=== PATIENT | male | born 1955 | race Two or more races ===

== ENCOUNTER 2017-01-06 01:00 | Inpatient (IN) | payer MEDICARE, OTHER ==
[~2017-01-06] VITALS: Ht 175.3 cm; Wt 73.9 kg
[2017-01-06 01:15] VITALS: BP 149/66
[2017-01-06] MEDS ORDERED: DOCUSATE SODIU100 MG ORAL (01:49)
[2017-01-06] MEDS ORDERED: AMLODIPINE BESYL5 MG ORAL (01:49)
[2017-01-06] MEDS ORDERED: METOPROLOL TART25 MG ORAL (01:49)
[2017-01-06] MEDS ORDERED: BENAZEPRIL HCL10 MG ORAL (01:49)
[2017-01-06] MEDS ORDERED: MELATONIN10 M4 PO (01:49)
[2017-01-06] MEDS ORDERED: LIPITOR20 MG ORAL (01:49)
[2017-01-06 04:00] VITALS: BP 133/79
[2017-01-06 08:02] VITALS: BP 137/84
[2017-01-06] MEDS: Docusate 100mg cap ORAL SCH ×2 (08:59→18:39)
[2017-01-06] MEDS: Metoprolol 25mg tab ORAL SCH ×2 (09:00→21:44)
[2017-01-06] MEDS: Benazepril 10mg tab ORAL SCH ×2 (09:00→18:39)
[2017-01-06 11:48] VITALS: BP 110/66
[2017-01-06 12:46] LABS: MAGNESIUM 2.2 mg/dL (1.7-2.5); PHOSPHORUS 3.7 mg/dL (2.5-4.8)
--- NOTE | 2017-01-06 12:46 | Consultation ---
History of Present Illness General Date patient seen: January 06, 2017 Chief Complaint: dizziness Referring physician: Dr. 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 pt was taken to [facility] with CC of dizziness. Apparently pt was saying that he is going to . His speech was more slurred and he was trembling. A CT at [place] didn't show any new CVA. Pt is transferred to [facility] [place] for further evaluation. Allergies: Coded Allergies: PENICILLINS (Verified Allergy, Intermediate, 01/06/17) Medication History Scheduled Amlodipine Besylate* (Amlodipine Besylate*), 5 MG ORAL DAILY, (Reported) Atorvastatin Calcium* (Lipitor*), 20 MG ORAL BEDTIME, (Reported) Benazepril Hcl* (Benazepril Hcl*), 10 MG ORAL BID, (Reported) Docusate Sodium* (Docusate Sodium*), 100 MG ORAL TWICE A DAY, (Reported) Melatonin (Melatonin), 10 MG PO QHS, (Reported) Metoprolol Tartrate* (Metoprolol Tartrate*), 25 MG ORAL EVERY 12 HOURS, ( Reported) Patient History Healthcare decision maker Resuscitation status Full Code Advanced Directive on File No Past Medical/Surgical History Past Medical/Surgical History: (1) Stroke Review of Systems All Other Systems: negative except mentioned in HPI Physical Exam General Appearance: WD/WN Lines, tubes and drains: peripheral, central line Neck: non-tender, normal alignment Respiratory/Chest: chest wall non-tender, lungs clear, rhonchi - left, rhonchi - right Cardiovascular/Chest: normal peripheral pulses, normal rate Abdomen: normal bowel sounds Genitourinary/Rectal: normal genital exam, normal rectal exam Extremities: normal range of motion Last 24 Hour Vital Signs Date Time Temp Pulse Resp B/P Pulse Ox O2 Delivery O2 Flow Rate FiO2 01/06/17 11:48 97.2 71 20 110/66 98 Nasal Cannula 2.0 01/06/17 09:00 137/84 01/06/17 09:00 105 137/84 01/06/17 09:00 105 137/84 01/06/17 08:02 97.6 105 20 137/84 98 Nasal Cannula 2.0 01/06/17 04:00 97.8 106 22 133/79 96 Nasal Cannula 2.0 01/06/17 04:00 103 01/06/17 01:15 97.0 61 20 149/66 96 Room Air Intake and Output 01/05/17 01/06/17 19:00 07:00 Output Total 2200 ml Balance -2200 ml Output Urine Total 2200 ml # Voids 1 Laboratory Tests Test 01/06/17 11:45 Phosphorus Level Pending Magnesium Level Pending Triglycerides Level Pending Cholesterol Level Pending LDL Cholesterol Pending HDL Cholesterol Pending Cholesterol/HDL Ratio Pending Height (Feet): 5 Height (Inches): 9.00 Weight (Pounds): 163 Medications Current Medications Medications (Trade) Dose Ordered Sig/Amandeep Route PRN Reason Start Time Stop Time Status Last Admin Dose Admin Amlodipine Besylate (Norvasc) 5 mg DAILY ORAL 01/06/17 09:00 02/05/17 08:59 01/06/17 09:00 Aspirin (ASA) 325 mg DAILY ORAL 01/06/17 09:00 02/05/17 08:59 01/06/17 09:00 Atorvastatin Calcium (Lipitor) 40 mg BEDTIME ORAL 01/06/17 21:00 02/05/17 20:59 Benazepril HCl (Lotensin) 10 mg BID ORAL 01/06/17 09:00 02/05/17 08:59 01/06/17 09:00 Docusate Sodium (Colace) 100 mg TWICE A DAY ORAL 01/06/17 09:00 02/05/17 08:59 01/06/17 08:59 Heparin Sodium (Porcine) (Heparin 5000 units/ml) 5,000 units EVERY 8 HOURS SUBQ 01/06/17 14:00 02/05/17 13:59 Metoprolol Tartrate (Lopressor) 25 mg Q12HR ORAL 01/06/17 09:00 02/05/17 08:59 01/06/17 09:00 Assessment/Plan Problem List: (1) Dizziness ICD Codes: R42 - Dizziness and giddiness SNOMED: 200498875, 153235466 (2) CVA, old, hemiparesis ICD Codes: I69.359 - Hemiplegia and hemiparesis following cerebral infarction affecting unspecified side SNOMED: 74658800, 81907320, 0516816344702 (3) HTN (hypertension) ICD Codes: I10 - Essential (primary) hypertension SNOMED: 14750990 (4) At high risk for aspiration ICD Codes: Z91.89 - Other specified personal risk factors, not elsewhere classified SNOMED: 588310027 Assessment/Plan swallow study neuro evaluation pt/ot risk stratification for CVA echo dvt prophylaxis aspiration precaution THA GURROLA January 06, 2017 12:46
[2017-01-06 12:55] LABS: BASOPHILS % (AUTO) 0.8 % (0.0-2.0); MEAN CORPUSCULAR HEMOGLOBIN 32.6 PG (27.0-31.0); MEAN CORPUSCULAR HGB CONC 34.1 G/DL (32.0-36.0); MEAN CORPUSCULAR VOLUME 96 FL (80-99); MEAN PLATELET VOLUME 7.6 FL (6.5-10.1); MONOCYTES % (AUTO) 6.9 % (1.0-10.0); NEUTROPHILS % (AUTO) 75.3 % (45.0-75.0); PLATELET COUNT 216 K/UL (150-450); RED BLOOD COUNT 4.77 M/UL (4.70-6.10); RED CELL DISTRIBUTION WIDTH 11.7 % (11.6-14.8); WHITE BLOOD COUNT 7.8 K/UL (4.8-10.8)
[2017-01-06 13:15] LABS: ANION GAP 10 (5-15); CALCIUM 9.3 mg/dL (8.6-10.2); CARBON DIOXIDE 30 mEQ/L (20-30); CHLORIDE 103 mEQ/L (98-107); CREATININE 0.8 mg/dL (0.7-1.2); GLOMERULAR FILTRATION RATE > 60 mL/min (>60); HEMOLYSIS 7; POTASSIUM 4.4 mEQ/L (3.4-4.9); SODIUM 143 mEQ/L (135-145)
--- NOTE | 2017-01-06 14:13 | Diagnostic Imaging Report ---
Indication: COUGH Technique: One view of the chest Comparison: none Findings: There is some atelectasis at the left lung base. Lungs and pleural spaces are otherwise clear. Heart size is normal. Aorta is tortuous. Upper mediastinum is unremarkable.. Impression: Left basilar atelectasis. No acute process otherwise
--- NOTE | 2017-01-06 14:28 | Neurology Progress Note ---
Objective Physical Exam Last Vital Signs Date Time Temp Pulse Resp B/P Pulse Ox O2 Delivery O2 Flow Rate FiO2 01/06/17 11:48 97.2 71 20 110/66 98 Nasal Cannula 2.0 Laboratory Tests Test 01/06/17 11:45 White Blood Count 7.8 K/UL (4.8-10.8) Red Blood Count 4.77 M/UL (4.70-6.10) Hemoglobin 15.6 G/DL (14.2-18.0) Hematocrit 45.8 % (42.0-52.0) Mean Corpuscular Volume 96 FL (80-99) Mean Corpuscular Hemoglobin 32.6 PG (27.0-31.0) H Mean Corpuscular Hemoglobin Concent 34.1 G/DL (32.0-36.0) Red Cell Distribution Width 11.7 % (11.6-14.8) Platelet Count 216 K/UL (150-450) Mean Platelet Volume 7.6 FL (6.5-10.1) Neutrophils (%) (Auto) 75.3 % (45.0-75.0) H Lymphocytes (%) (Auto) 15.0 % (20.0-45.0) L Monocytes (%) (Auto) 6.9 % (1.0-10.0) Eosinophils (%) (Auto) 2.0 % (0.0-3.0) Basophils (%) (Auto) 0.8 % (0.0-2.0) Sodium Level 143 mEQ/L (135-145) Potassium Level 4.4 mEQ/L (3.4-4.9) Chloride Level 103 mEQ/L (98-107) Carbon Dioxide Level 30 mEQ/L (20-30) Anion Gap 10 (5-15) Blood Urea Nitrogen 9 mg/dL (7-23) Creatinine 0.8 mg/dL (0.7-1.2) Estimat Glomerular Filtration Rate > 60 mL/min (>60) Glucose Level 99 mg/dL (74-106) Calcium Level 9.3 mg/dL (8.6-10.2) Phosphorus Level 3.7 mg/dL (2.5-4.8) Magnesium Level 2.2 mg/dL (1.7-2.5) Triglycerides Level 96 mg/dL (< 150) Cholesterol Level 137 mg/dL (< 200) LDL Cholesterol 72 mg/dL (60-99) HDL Cholesterol 46 mg/dL (> 60) Cholesterol/HDL Ratio 3.0 (3.3-4.4) L Impression/Recommendations Recommendations #[id number] YASEMIN ALVAREZ January 06, 2017 14:28
[2017-01-06] MEDS: Heparin 5000 units/ml inj SUBQ SCH ×2 (15:12→21:46)
--- NOTE | 2017-01-06 15:30 | Diagnostic Imaging Report ---
Indication: Left facial droop and pheresis, hemiplegia. History of multiple strokes Technique: sagittal T1 fast spin echo, axial T1 FLAIR, axial T2 FLAIR, axial T2 FS PROPELLER, axial T2* GRE, axial diffusion weighted images. ADC and exponential ADC maps generated Comparison: None Findings: No abnormal areas of restricted diffusion to suggest acute infarction. No acute hemorrhage or edema. Areas of susceptibility artifact are seen in the posterior jesus extending into the midbrain and left cerebral peduncle, within the posterior hypothalamus, and within the bilateral basal ganglia. These areas are mostly low signal on all sequences, with occasional areas of high T2 signal. Similar area is also seen in the high right frontal lobe. These are presumably areas of prior infarct with associated hemorrhage. Small punctate foci of susceptibility artifact, indicating foci of old microhemorrhage are also seen in the parasagittal parietal lobes bilaterally. Small focus of encephalomalacia without associated T2 star abnormality is seen in the right anterior parasagittal frontal lobe. No mass effect nor midline shift. There is mild age-related enlargement of ventricles and extra axial CSF spaces. There are bilateral periventricular deep white matter T2 hyperintensities, most likely areas of chronic ischemic. The vascular flow voids are preserved. Visualized orbits and sinuses are unremarkable. Impression: Negative for acute intracranial bleed, mass effect, or infarct Evidence of multiple old infarcts with associated hemorrhage, as described Chronic and age-related volume loss Periventricular deep white matter T2 hyperintensities, most likely on the basis of chronic ischemic changes. Demyelinating disease also a possibility
[2017-01-06 15:51] VITALS: BP 118/71
--- NOTE | 2017-01-06 18:01 | History & Physical ---
History and Physical History & Physicial Dictated for Int Med-Dr Burgess no. [id number]. WOJCIECH GUERRERO January 06, 2017 18:01
[2017-01-06 20:00] VITALS: BP 120/78
--- NOTE | 2017-01-06 21:17 | History and Physical Report ---
DATE OF ADMISSION: 01/06/2017 CHIEF COMPLAINT: The patient is a 61-year-old male with history of previous cerebrovascular accident, presents with complaint of dizziness and tremors. HISTORY OF PRESENT ILLNESS: Began yesterday afternoon. The patient began to have extreme dizziness. Much of the history and physical was taken with the patient's , who is at the bedside. The patient himself is dysarthric and is unable to contribute much of the history and physical. The patient's son noticed that the patient became more tremulous. The patient also had slurred speech more than usual. The patient was initially taken to [facility] emergency room. Initial MRI failed to demonstrate acute cerebrovascular accident. The patient is transferred to [facility] for insurance purposes. The patient was admitted for dizziness, tremors and dysarthria to rule out acute cerebrovascular accident. PAST MEDICAL HISTORY: Significant for, 1. Hypertension. 2. History of stroke x3 since 2011. 3. Right hemiplegia. 4. Coronary artery disease. 5. Hypercholesterolemia. 6. History of small-bowel obstruction. PAST SURGICAL HISTORY: Significant for, 1. Trach replacement and subsequent reversal. 2. Percutaneous endoscopic gastrostomy placement on 05/2016. CURRENT MEDICATIONS: 1. Amlodipine 5 mg one tablet p.o. daily. 2. Lipitor 20 mg one tablet p.o. q.h.s. 3. Benazepril 10 mg one tablet p.o. twice daily. 4. Colace 100 mg one tablet p.o. twice daily. 5. Melatonin 10 mg one tablet p.o. q.h.s. 6. Metoprolol 25 mg one p.o. twice daily. ALLERGIES: No known drug allergies. SOCIAL HISTORY: The patient is . The patient denies tobacco use having quit 40 years previously. The patient denies alcohol use. REVIEW OF SYSTEMS: Unable to assess, secondary to patient's mental condition. PHYSICAL EXAMINATION: VITAL SIGNS: Temperature 97.6 degrees, respirations 20, pulse 105, blood pressure 137/84, and pulse oximetry 98% on two liters per nasal cannula. GENERAL: The patient is well-developed and well-nourished, male, who appears older than his stated age. HEENT: Eyes, pupils are equal and responsive. Left eye shows a deviation. Otherwise, right eye pupil equal and responsive to light and accommodation. Extraocular movements are intact. NECK: Supple without lymphadenopathy. There is presence of previous tracheostomy noted. CARDIOVASCULAR: Slightly tachycardic. Regular rhythm. S1 and S2 are normal without murmurs, rubs, or gallops. ABDOMEN: Soft, nontender, and nondistended. Positive bowel sounds. No evidence of hepatosplenomegaly. Currently, no rebound or guarding noted. EXTREMITIES: Negative for clubbing, cyanosis, or edema. RECTAL/GENITAL: Refused. NEUROLOGIC: The patient does have 2/5 motor strength on the right and 3/5 on the left. Deep tendon reflexes are 2+ plantar. LABORATORY STUDIES: An MRI revealed no acute infarct. WBC 5.4, hemoglobin 14.4, and hematocrit 41.4. Urine is 84,000. Sodium 140, potassium 4.3, chloride 103, CO2 30, BUN 9, creatinine 0.9, and glucose 121. ProTime INR is 1.0. Urinalysis was within normal limits. ASSESSMENT: This is a 61-year-old male. 1. Vertigo. 2. Tremor. 3. Dysarthria. 4. History of cerebrovascular disease. 5. History of coronary artery disease. 6. Hypertension. 7. Hypercholesterolemia. 8. Right hemiplegia. TREATMENT: 1. Vertigo/tumor/dysarthria. A Neurology consultation was obtained with Dr. Arreaga. Carotid duplex and Dopplers are pending. An echocardiogram is pending. A repeat MRI is pending. We will follow recommendations of Neurology. This may be a transient ischemic attack versus new cerebrovascular accident. We will follow recommendations of Neurology. 2. Coronary artery disease. The patient is status post myocardial infarction in 2011. A Cardiology consultation was obtained with Dr. Praveen Min. We will follow recommendations of Dr. Min. 3. Hypertension. Continue amlodipine and benazepril as above. Continue metoprolol as above. 4. Hypercholesterolemia. Continue atorvastatin as above. 5. Right hemiplegia. Jw Lugo M.D. DR: IGNACIA JOB#: [id number] CC:
--- NOTE | 2017-01-06 21:32 | Consultation ---
DATE OF CONSULTATION: 01/06/2017 CONSULTING PHYSICIAN: Adrian Arreaga M.D. REFERRING PHYSICIAN: Romaine Burgess M.D. HISTORY OF PRESENT ILLNESS: The patient is a 61-year-old male with multiple strokes in the past now admitted after having few days of acute positional vertigo, headache, generalized arms and legs tremors. His described the patient had episodes of spinning sensation which were progressed with any head movement, the patient apparently had a similar episode a year ago at which point no stroke was diagnosed. The patient was initially brought to [facility] Emergency Room, had a CAT scan of the brain which revealed old right frontal lobe infarct, ischemic white matter changes but no evidence of acute abnormalities. The patient was brought to this hospital for further assessment and treatment. Initial laboratory studies included normal CBC. Chemistry panel unremarkable. Unremarkable lipid panel. Vital signs remained stable except sinus tachycardia. PAST MEDICAL HISTORY: The patient had at least three episodes of strokes including pontine stroke. He remained with significant neurological deficit which make him wheelchair bound as he unable to ambulate, and unable to provide himself with all activities through the day living. He has a history of hypertension, history of coronary artery disease, hyperlipidemia, history of small bowel obstruction. SOCIAL HISTORY: The patient lives with his . No alcohol. No drug abuse. Nonsmoker. FAMILY HISTORY: Noncontributory. REVIEW OF SYSTEMS: The patient indicates that he still have some dizziness although subsided significantly. Otherwise the patient indicating he is at baseline. PHYSICAL EXAMINATION: GENERAL: Well-developed and well-nourished man not in acute distress, lying comfortably in bed. His at the bedside. VITAL SIGNS: Blood pressure 133/80, respirations 14. HEENT: Head, normocephalic. No evidence of injuries. Eyes, ears, and throat are clear. NECK: Rigid in all directions. MUSCULOSKELETAL: Unremarkable. There is no deformities. Peripheral pulses 1+ symmetric. MENTAL STATUS: The patient is alert. Speech is very dysarthric. Very hard to understand. He is coherent. Follow commands. CRANIAL NERVE II: Pupils both responding to light and accommodation. There is a right gaze preference. Inward deviation of left eye with no lateral gaze movement. CRANIAL NERVE V: Normal corneal responses. CRANIAL NERVE VII: Droop left nasolabial fold . CRANIAL NERVE VIII: Normal hearing. CRANIAL NERVE IX THROUGH XII: Dysphagia, slight tongue deviation to the right. Reduced gag response. There is some dysphonia. MOTOR EXAMINATION: Slight spasticity in both upper and lower extremities more on the right side with strength 5/5 on the left side, 4/5 on the right side with significant hemiataxia. Deep tendon reflexes 3+ on the right. Positive Babinski in the right. SENSORY: Significant pinprick sensation loss on the right side of the body. Gait unable to test. The patient required full assist. IMPRESSION: 1. This is a 61-year-old male with multiple stroke risk factors and multiple strokes in the past now presenting with transient episode of positional vertigo with no evidence of new neurological deficit rule out benign positional vertigo versus stroke in posterior vertebrobasilar system. 2. Hypertension. 3. Hyperlipidemia. 4. Coronary artery disease. RECOMMENDATIONS: 1. MRI of the brain without contrast. 2. Carotid duplex study. 3. Continue with antiplatelets, statin while maintaining blood pressure control. 4. Meclizine 12.5 mg t.i.d. p.r.n. vertigo. Thank you for allowing me to see this interesting patient in neurological consultation. Adrian Arreaga M.D. DR: Ameya JOB#: [id number] CC:
[2017-01-07] VITALS: BP 105/65
[2017-01-07 04:13] VITALS: BP 105/65
[2017-01-07] MEDS: Heparin 5000 units/ml inj SUBQ SCH ×3 (05:59→21:13)
[2017-01-07 08:14] VITALS: BP 112/70
[2017-01-07 08:17] LABS: BASOPHILS % (AUTO) 1.1 % (0.0-2.0); EOSINOPHILS % (AUTO) 4.9 % (0.0-3.0); LYMPHOCYTES % (AUTO) 28.5 % (20.0-45.0); MEAN CORPUSCULAR HEMOGLOBIN 32.8 PG (27.0-31.0); MEAN CORPUSCULAR HGB CONC 34.2 G/DL (32.0-36.0); MEAN CORPUSCULAR VOLUME 96 FL (80-99); MEAN PLATELET VOLUME 8.7 FL (6.5-10.1); MONOCYTES % (AUTO) 8.7 % (1.0-10.0); NEUTROPHILS % (AUTO) 56.7 % (45.0-75.0); PLATELET COUNT 191 K/UL (150-450); RED BLOOD COUNT 4.49 M/UL (4.70-6.10); RED CELL DISTRIBUTION WIDTH 11.9 % (11.6-14.8); WHITE BLOOD COUNT 5.5 K/UL (4.8-10.8)
[2017-01-07 08:31] LABS: ANION GAP 9 (5-15); CALCIUM 9.1 mg/dL (8.6-10.2); CARBON DIOXIDE 31 mEQ/L (20-30); CHLORIDE 102 mEQ/L (98-107); CREATININE 0.7 mg/dL (0.7-1.2); GLOMERULAR FILTRATION RATE > 60 mL/min (>60); HEMOLYSIS 5; POTASSIUM 3.9 mEQ/L (3.4-4.9); SODIUM 142 mEQ/L (135-145)
[2017-01-07] MEDS: Benazepril 10mg tab ORAL SCH ×2 (09:44→17:52)
[2017-01-07] MEDS: Docusate 100mg cap ORAL SCH (09:44)
[2017-01-07] MEDS: Metoprolol 25mg tab ORAL SCH ×2 (09:45→21:11)
--- NOTE | 2017-01-07 11:40 | Internal Med Progress Note ---
Subjective Date of Service: January 07, 2017 Physician Name Jw Guerrero Attending Physician Romaine Burgess MD Current Medications Medications (Trade) Dose Ordered Sig/Amandeep Route PRN Reason Start Time Stop Time Status Last Admin Dose Admin Amlodipine Besylate (Norvasc) 5 mg DAILY ORAL 01/06/17 09:00 02/05/17 08:59 01/07/17 09:45 Aspirin (ASA) 325 mg DAILY ORAL 01/06/17 09:00 02/05/17 08:59 01/07/17 09:44 Atorvastatin Calcium (Lipitor) 40 mg BEDTIME ORAL 01/06/17 21:00 02/05/17 20:59 01/06/17 21:44 Benazepril HCl (Lotensin) 10 mg BID ORAL 01/06/17 09:00 02/05/17 08:59 01/07/17 09:44 Docusate Sodium (Colace) 100 mg TWICE A DAY ORAL 01/06/17 09:00 02/05/17 08:59 01/07/17 09:44 Heparin Sodium (Porcine) (Heparin 5000 units/ml) 5,000 units EVERY 8 HOURS SUBQ 01/06/17 14:00 02/05/17 13:59 01/07/17 05:59 Metoprolol Tartrate (Lopressor) 25 mg Q12HR ORAL 01/06/17 09:00 02/05/17 08:59 01/07/17 09:45 Allergies: Coded Allergies: PENICILLINS (Verified Allergy, Intermediate, 01/06/17) ROS Limited/Unobtainable: Yes Subjective 61 YO M admitted with vertigo and possible cerebral vascular accident. Cover for Int Med-Dr Burgess. Objective Last Vital Signs Date Time Temp Pulse Resp B/P Pulse Ox O2 Delivery O2 Flow Rate FiO2 01/07/17 09:45 73 114/74 01/07/17 08:14 97.9 18 98 Nasal Cannula 2.0 01/07/17 04:30 30 Laboratory Tests Test 01/06/17 11:45 01/07/17 07:25 White Blood Count 7.8 K/UL (4.8-10.8) 5.5 K/UL (4.8-10.8) Red Blood Count 4.77 M/UL (4.70-6.10) 4.49 M/UL (4.70-6.10) L Hemoglobin 15.6 G/DL (14.2-18.0) 14.7 G/DL (14.2-18.0) Hematocrit 45.8 % (42.0-52.0) 43.1 % (42.0-52.0) Mean Corpuscular Volume 96 FL (80-99) 96 FL (80-99) Mean Corpuscular Hemoglobin 32.6 PG (27.0-31.0) H 32.8 PG (27.0-31.0) H Mean Corpuscular Hemoglobin Concent 34.1 G/DL (32.0-36.0) 34.2 G/DL (32.0-36.0) Red Cell Distribution Width 11.7 % (11.6-14.8) 11.9 % (11.6-14.8) Platelet Count 216 K/UL (150-450) 191 K/UL (150-450) Mean Platelet Volume 7.6 FL (6.5-10.1) 8.7 FL (6.5-10.1) Neutrophils (%) (Auto) 75.3 % (45.0-75.0) H 56.7 % (45.0-75.0) Lymphocytes (%) (Auto) 15.0 % (20.0-45.0) L 28.5 % (20.0-45.0) Monocytes (%) (Auto) 6.9 % (1.0-10.0) 8.7 % (1.0-10.0) Eosinophils (%) (Auto) 2.0 % (0.0-3.0) 4.9 % (0.0-3.0) H Basophils (%) (Auto) 0.8 % (0.0-2.0) 1.1 % (0.0-2.0) Sodium Level 143 mEQ/L (135-145) 142 mEQ/L (135-145) Potassium Level 4.4 mEQ/L (3.4-4.9) 3.9 mEQ/L (3.4-4.9) Chloride Level 103 mEQ/L (98-107) 102 mEQ/L (98-107) Carbon Dioxide Level 30 mEQ/L (20-30) 31 mEQ/L (20-30) H Anion Gap 10 (5-15) 9 (5-15) Blood Urea Nitrogen 9 mg/dL (7-23) 14 mg/dL (7-23) Creatinine 0.8 mg/dL (0.7-1.2) 0.7 mg/dL (0.7-1.2) Estimat Glomerular Filtration Rate > 60 mL/min (>60) > 60 mL/min (>60) Glucose Level 99 mg/dL (74-106) 82 mg/dL (74-106) Calcium Level 9.3 mg/dL (8.6-10.2) 9.1 mg/dL (8.6-10.2) Phosphorus Level 3.7 mg/dL (2.5-4.8) Magnesium Level 2.2 mg/dL (1.7-2.5) Triglycerides Level 96 mg/dL (< 150) Cholesterol Level 137 mg/dL (< 200) LDL Cholesterol 72 mg/dL (60-99) HDL Cholesterol 46 mg/dL (> 60) Cholesterol/HDL Ratio 3.0 (3.3-4.4) L Intake and Output 01/06/17 01/07/17 19:00 07:00 Intake Total 600 ml Output Total 600 ml 600 ml Balance 0 ml -600 ml Intake Oral 600 ml Output Urine Total 600 ml 600 ml Objective General: alert, cooperative, no distress, appears stated age Head: normocephalic, without obvious abnormality, atraumatic Eyes: conjunctivae/corneas clear. PERRL, EOM's intact Throat: lips, mucosa, and tongue normal. MMM Neck: supple, symmetrical, trachea midline, and no JVD Lungs: clear to auscultation bilaterally Heart: regular rate and rhythm, S1, S2 normal, no murmur, click, rub or gallop Abdomen: soft, non-tender, non-distended, bowel sounds normal; no masses or organomegaly Extremities: extremities normal, atraumatic, no cyanosis or edema Pulses: 2+ and symmetric Skin: skin color, texture, turgor normal; no rashes or lesions Neurologic: right hemiplegia. Assessment/Plan Problem List: (1) Vertigo as late effect of stroke Assessment & Plan: MRI=no acute CVA. ?TIA vs vertebral artery occlusion? See neuro workup in progress. (2) Tremor (3) Dysarthria as late effect of stroke (4) Cerebral vascular disease (5) Coronary artery disease (6) HTN (hypertension) Assessment & Plan: Continue norvasc, lopressor and lotensin (7) Hypercholesteremia Assessment & Plan: Continue lipitor (8) Hemiplegia affecting right dominant side Status: not improved JW GUERRERO January 07, 2017 11:40
[2017-01-07 11:47] VITALS: BP 110/62
--- NOTE | 2017-01-07 12:57 | Neurology Progress Note ---
Interim History Interim History ROS Limited/Unobtainable: Yes Complaints: feel better Events: no vertigo Objective Physical Exam Last Vital Signs Date Time Temp Pulse Resp B/P Pulse Ox O2 Delivery O2 Flow Rate FiO2 01/07/17 11:47 97.2 72 17 110/62 98 Room Air 01/07/17 08:14 2.0 01/07/17 04:30 30 Laboratory Tests Test 01/07/17 07:25 White Blood Count 5.5 K/UL (4.8-10.8) Red Blood Count 4.49 M/UL (4.70-6.10) L Hemoglobin 14.7 G/DL (14.2-18.0) Hematocrit 43.1 % (42.0-52.0) Mean Corpuscular Volume 96 FL (80-99) Mean Corpuscular Hemoglobin 32.8 PG (27.0-31.0) H Mean Corpuscular Hemoglobin Concent 34.2 G/DL (32.0-36.0) Red Cell Distribution Width 11.9 % (11.6-14.8) Platelet Count 191 K/UL (150-450) Mean Platelet Volume 8.7 FL (6.5-10.1) Neutrophils (%) (Auto) 56.7 % (45.0-75.0) Lymphocytes (%) (Auto) 28.5 % (20.0-45.0) Monocytes (%) (Auto) 8.7 % (1.0-10.0) Eosinophils (%) (Auto) 4.9 % (0.0-3.0) H Basophils (%) (Auto) 1.1 % (0.0-2.0) Sodium Level 142 mEQ/L (135-145) Potassium Level 3.9 mEQ/L (3.4-4.9) Chloride Level 102 mEQ/L (98-107) Carbon Dioxide Level 31 mEQ/L (20-30) H Anion Gap 9 (5-15) Blood Urea Nitrogen 14 mg/dL (7-23) Creatinine 0.7 mg/dL (0.7-1.2) Estimat Glomerular Filtration Rate > 60 mL/min (>60) Glucose Level 82 mg/dL (74-106) Calcium Level 9.1 mg/dL (8.6-10.2) General: well developed, well nourished, no acute distress Head: normocophalic Neck: no rigidity Neurologic Exam Mental Status: awake, alert, other - ox2 Speech: other - dysarthria Language: other Cranial Nerve II: fundus normal, visual martinez Cranial Nerves III, IV, : other - L EYE DEVIATION TO r Cranial Nerve V: normal facial sensations Cranial Nerve VII: normal facial expressions Cranial Nerve VIII: no nystagmus Cranial Nerve IX: other - POOR GAG Cranial Nerve XI: trapezii function normal Cranial Nerve XII: no tongue atrophy/fasciculations Motor System: other - RIGIDITY r HEMIPARESIS Sensory: other - HEMISENSORY LOSS Coordination: other - ATAXIA r SIDE Deep Tendon Reflexes: 0 ankle (L), 0 ankle (R), 0 bicep (L), 0 bicep (R), 0 brachioradialis (L), 0 brachioradialis (R), 0 knee (L), 0 knee (R), 0 tricep (L) , 0 tricep (R) Reflexes: extensor plantar (R) Impression/Recommendations Problems: (1) Vertigo as late effect of stroke (2) Dysarthria as late effect of stroke (3) HTN (hypertension) (4) Hypercholesteremia (5) Coronary artery disease Status: doing well Recommendations #[id number] mri BRAI N NO ACUTE STROKE CONT PRESENT RX YASEMIN ALVAREZ January 07, 2017 12:57
[2017-01-07 16:00] VITALS: BP 123/67
--- NOTE | 2017-01-07 16:45 | Diagnostic Imaging Report ---
Indication: Dysphasia Procedure and findings: Real-time fluoroscopic imaging performed in a lateral projection in conjunction with the speech pathologist evaluation. Variable consistencies of barium given per mouth. Findings: Significant abnormalities of both oral and pharyngeal phases of swallowing are demonstrated. Penetration noted with thin barium. No aspiration identified. Abnormal video swallow. Please refer to speech pathology evaluation for more information.
--- NOTE | 2017-01-07 17:38 | Pulmonology Progress Note ---
Assessment/Plan Problems: (1) Dizziness (2) CVA, old, hemiparesis (3) HTN (hypertension) (4) At high risk for aspiration Assessment/Plan MRI negative for new events swallow study noted pt/ot might go to med/surg Subjective ROS Limited/Unobtainable: Yes Allergies: Coded Allergies: PENICILLINS (Verified Allergy, Intermediate, 01/06/17) Objective Last 24 Hour Vital Signs Date Time Temp Pulse Resp B/P Pulse Ox O2 Delivery O2 Flow Rate FiO2 01/07/17 16:00 96.9 61 17 123/67 99 Room Air 01/07/17 11:47 97.2 72 17 110/62 98 Room Air 01/07/17 09:45 73 114/74 01/07/17 09:45 73 114/74 01/07/17 09:44 114/70 01/07/17 08:14 97.9 63 18 112/70 98 Nasal Cannula 2.0 01/07/17 04:30 75 18 99 Facial 30 01/07/17 04:13 98.0 65 16 105/65 98 2.0 30 01/07/17 04:00 66 01/07/17 01:30 80 16 98 Facial 30 01/07/17 00:00 56 01/07/17 00:00 98.0 59 19 105/65 99 Nasal Cannula 2.0 30 01/06/17 22:30 82 19 99 Facial 30 01/06/17 21:44 73 120/78 01/06/17 20:00 98.0 73 20 120/78 98 Nasal Cannula 2.0 01/06/17 20:00 82 01/06/17 18:39 118/71 Intake and Output 01/06/17 01/07/17 19:00 07:00 Intake Total 600 ml Output Total 600 ml 600 ml Balance 0 ml -600 ml Intake Oral 600 ml Output Urine Total 600 ml 600 ml General Appearance: WD/WN HEENT: normocephalic Respiratory/Chest: chest wall non-tender, lungs clear Cardiovascular: normal peripheral pulses, normal rate Abdomen: normal bowel sounds, soft, non tender Genitourinary: normal external genitalia Extremities: no cyanosis, no clubbing Skin: no rash, no lesions Laboratory Tests 01/07/17 07:25: White Blood Count 5.5, Red Blood Count 4.49L, Hemoglobin 14.7, Hematocrit 43.1, Mean Corpuscular Volume 96, Mean Corpuscular Hemoglobin 32.8H, Mean Corpuscular Hemoglobin Concent 34.2, Red Cell Distribution Width 11.9, Platelet Count 191, Mean Platelet Volume 8.7, Neutrophils (%) (Auto) 56.7, Lymphocytes (%) (Auto) 28.5, Monocytes (%) (Auto) 8.7, Eosinophils (%) (Auto) 4.9H, Basophils (%) (Auto ) 1.1, Sodium Level 142, Potassium Level 3.9, Chloride Level 102, Carbon Dioxide Level 31H, Anion Gap 9, Blood Urea Nitrogen 14, Creatinine 0.7, Estimat Glomerular Filtration Rate > 60, Glucose Level 82, Calcium Level 9.1 Current Medications Medications (Trade) Dose Ordered Sig/Amandeep Route PRN Reason Start Time Stop Time Status Last Admin Dose Admin Amlodipine Besylate (Norvasc) 5 mg DAILY ORAL 01/06/17 09:00 02/05/17 08:59 01/07/17 09:45 Aspirin (ASA) 325 mg DAILY ORAL 01/06/17 09:00 02/05/17 08:59 01/07/17 09:44 Atorvastatin Calcium (Lipitor) 40 mg BEDTIME ORAL 01/06/17 21:00 02/05/17 20:59 01/06/17 21:44 Benazepril HCl (Lotensin) 10 mg BID ORAL 01/06/17 09:00 02/05/17 08:59 01/07/17 09:44 Docusate Sodium (Colace) 100 mg TWICE A DAY ORAL 01/06/17 09:00 02/05/17 08:59 01/07/17 09:44 Heparin Sodium (Porcine) (Heparin 5000 units/ml) 5,000 units EVERY 8 HOURS SUBQ 01/06/17 14:00 02/05/17 13:59 01/07/17 15:29 Metoprolol Tartrate (Lopressor) 25 mg Q12HR ORAL 01/06/17 09:00 02/05/17 08:59 01/07/17 09:45 THA GURROLA January 07, 2017 17:38
[2017-01-07 20:00] VITALS: BP 117/68
[2017-01-08] VITALS: BP 102/60
[2017-01-08 04:00] VITALS: BP 132/66
[2017-01-08] MEDS: Heparin 5000 units/ml inj SUBQ SCH ×3 (06:33→22:37)
[2017-01-08 07:39] LABS: BASOPHILS % (AUTO) 0.9 % (0.0-2.0); EOSINOPHILS % (AUTO) 5.3 % (0.0-3.0); LYMPHOCYTES % (AUTO) 27.6 % (20.0-45.0); MEAN CORPUSCULAR HEMOGLOBIN 32.7 PG (27.0-31.0); MEAN CORPUSCULAR HGB CONC 34.3 G/DL (32.0-36.0); MEAN CORPUSCULAR VOLUME 95 FL (80-99); MEAN PLATELET VOLUME 8.1 FL (6.5-10.1); MONOCYTES % (AUTO) 9.4 % (1.0-10.0); NEUTROPHILS % (AUTO) 56.8 % (45.0-75.0); PLATELET COUNT 174 K/UL (150-450); RED BLOOD COUNT 4.38 M/UL (4.70-6.10); RED CELL DISTRIBUTION WIDTH 11.4 % (11.6-14.8); WHITE BLOOD COUNT 5.9 K/UL (4.8-10.8)
[2017-01-08 08:00] VITALS: BP 117/65
[2017-01-08 08:03] LABS: ANION GAP 9 (5-15); CARBON DIOXIDE 33 mEQ/L (20-30); CHLORIDE 101 mEQ/L (98-107); CREATININE 0.7 mg/dL (0.7-1.2); GLOMERULAR FILTRATION RATE > 60 mL/min (>60); HEMOLYSIS 6; POTASSIUM 4.1 mEQ/L (3.4-4.9); SODIUM 143 mEQ/L (135-145)
[2017-01-08] MEDS: Metoprolol 25mg tab ORAL SCH ×2 (10:08→21:01)
[2017-01-08] MEDS: Benazepril 10mg tab ORAL SCH ×2 (10:08→21:01)
--- NOTE | 2017-01-08 11:31 | Wound Care Consultation ---
Wound Assessment Wound Assessment : Wound Present on Admission: Yes New Wound: No Status Change of Wound: No Wound Location Body Site Modif: mid Wound Location Body Site: nose - bridge of nose Wound Type: pressure ulcer Diego Test: Does not Diego Pressure Ulcer Stage: II Wound Thickness: Full Thickness Wound Length: 2.0 Wound Width: 1.0 Wound Depth: 0.1 Percent of Wound Seth Ward/Red: 100 Wound Drainage Description: Serosanguineous Wound Drainage Amount: Scant Wound Drainage Odor: None/Absent Tissue Surrounding Wound: Intact Wound General Appearance: Reddened Wound Comment #1 Bridge of the nose stage II pressure ulcer Recommendation -Cleanse with saline pat dry apply Triad cover with 4x4 secure with paper tape -Keep clean and dry -Optimize nutrition -Assess and f/u accordingly for any changes RYAN KEYES RN January 08, 2017 11:31
[2017-01-08 12:00] VITALS: BP 116/66
[2017-01-08] MEDS ORDERED: Meclizine 25mg tab ORAL PRN ×2 (13:00→17:00)
--- NOTE | 2017-01-08 13:01 | Pulmonology Progress Note ---
Assessment/Plan Problems: (1) Dizziness (2) CVA, old, hemiparesis (3) HTN (hypertension) (4) At high risk for aspiration Assessment/Plan MRI negative for new events swallow study noted pt/ot might go to med/surg GI to remove gube start antivert Subjective ROS Limited/Unobtainable: No Constitutional: Reports: no symptoms HEENT: Repors: no symptoms Allergies: Coded Allergies: PENICILLINS (Verified Allergy, Intermediate, 01/06/17) Objective Last 24 Hour Vital Signs Date Time Temp Pulse Resp B/P Pulse Ox O2 Delivery O2 Flow Rate FiO2 01/08/17 12:00 97.4 50 18 116/66 Nasal Cannula 2.0 99 01/08/17 10:08 142/76 01/08/17 10:08 77 142/76 01/08/17 10:08 77 142/76 01/08/17 08:00 97.4 64 18 117/65 99 Room Air 01/08/17 05:20 65 18 98 Facial 30 01/08/17 04:00 70 01/08/17 04:00 97.9 65 20 132/66 96 Bi-pap 01/08/17 03:45 62 19 98 Facial 30 01/08/17 01:25 60 21 98 Facial 30 01/08/17 00:00 56 01/08/17 00:00 97.6 62 20 102/60 98 Bi-pap 01/07/17 23:29 64 23 98 Facial 30 01/07/17 21:53 61 18 98 Facial 30 01/07/17 21:11 77 117/68 01/07/17 20:00 78 01/07/17 20:00 98.2 77 21 117/68 94 Room Air 01/07/17 17:52 123/67 01/07/17 16:00 66 01/07/17 16:00 96.9 61 17 123/67 99 Room Air Intake and Output 01/07/17 01/08/17 19:00 07:00 Intake Total 530 ml Output Total 900 ml Balance 530 ml -900 ml Intake Oral 530 ml Output Urine Total 900 ml General Appearance: cachetic HEENT: atraumatic Respiratory/Chest: chest wall non-tender, lungs clear Cardiovascular: normal peripheral pulses, normal rate Abdomen: normal bowel sounds, soft, non tender Extremities: no cyanosis, no clubbing Neurologic/Psychiatric: responsive Musculoskeletal: normal muscle bulk Microbiology Date/Time Source Procedure Growth Status 01/06/17 02:10 Nasal Nares Left MRSA Culture - Final NO METHICILLIN RESISTANT STAPH AUREUS... Complete 01/06/17 02:10 Rectum VRE Culture - Final NO VANCOMYCIN RESISTANT ENTEROCOCCUS ... Complete Laboratory Tests 01/08/17 06:30: White Blood Count 5.9, Red Blood Count 4.38L, Hemoglobin 14.3, Hematocrit 41.7L , Mean Corpuscular Volume 95, Mean Corpuscular Hemoglobin 32.7H, Mean Corpuscular Hemoglobin Concent 34.3, Red Cell Distribution Width 11.4L, Platelet Count 174, Mean Platelet Volume 8.1, Neutrophils (%) (Auto) 56.8, Lymphocytes (%) (Auto) 27.6, Monocytes (%) (Auto) 9.4, Eosinophils (%) (Auto) 5.3H, Basophils (%) (Auto) 0.9, Sodium Level 143, Potassium Level 4.1, Chloride Level 101, Carbon Dioxide Level 33H, Anion Gap 9, Blood Urea Nitrogen 15, Creatinine 0.7, Estimat Glomerular Filtration Rate > 60, Glucose Level 86, Calcium Level 9.0 Current Medications Medications (Trade) Dose Ordered Sig/Amandeep Route PRN Reason Start Time Stop Time Status Last Admin Dose Admin Amlodipine Besylate (Norvasc) 5 mg DAILY ORAL 01/06/17 09:00 02/05/17 08:59 01/08/17 10:08 Aspirin (ASA) 325 mg DAILY ORAL 01/06/17 09:00 02/05/17 08:59 01/08/17 10:07 Atorvastatin Calcium (Lipitor) 40 mg BEDTIME ORAL 01/06/17 21:00 02/05/17 20:59 01/07/17 21:11 Benazepril HCl (Lotensin) 10 mg BID ORAL 01/06/17 09:00 02/05/17 08:59 01/08/17 10:08 Docusate Sodium (Colace) 100 mg BID ORAL 01/08/17 18:30 02/07/17 18:29 Heparin Sodium (Porcine) (Heparin 5000 units/ml) 5,000 units EVERY 8 HOURS SUBQ 01/06/17 14:00 02/05/17 13:59 01/08/17 10:09 Metoprolol Tartrate (Lopressor) 25 mg Q12HR ORAL 01/06/17 09:00 02/05/17 08:59 01/08/17 10:08 THA GURROLA January 08, 2017 13:01
--- NOTE | 2017-01-08 14:51 | GI Initial Consult Note ---
History of Present Illness General Date patient seen: January 08, 2017 Time patient seen: 13:00 Reason for Hospitalization: ASPIRATION Referring physician: Dr. Lugo Reason for Consultation: GT REMOVAL Present Illness HPI Began yesterday afternoon. The patient began to have extreme dizziness. Much of the history and physical was taken with the patient's , who is at the bedside. The patient himself is dysarthric and is unable to contribute much of the history and physical. The patient's son noticed that the patient became more tremulous. The patient also had slurred speech more than usual. The patient was initially taken to [facility] emergency room. Initial MRI failed to demonstrate acute cerebrovascular accident. The patient is transferred to [facility] for insurance purposes. The patient was admitted for dizziness, tremors and dysarthria to rule out acute cerebrovascular accident. GI CONSULT: HPI as noted above. GI consulted for GT removal. SADAF limited, family member at bedside. Pt seen on floor awake alert NAD being fed by family member. No active s/sx of aspiration. According to the family member, the patient has been eating since June and has had no reports of aspiration. Home Meds Reported Medications Melatonin (Melatonin) 10 Mg Tablet.er, 10 MG PO QHS, TAB 01/06/17 Benazepril Hcl* (BENAZEPRIL HCL*) 10 Mg Tablet, 10 MG ORAL BID, TAB 01/06/17 Atorvastatin Calcium* (LIPITOR*) 20 Mg Tablet, 20 MG ORAL BEDTIME, TAB 01/06/17 Amlodipine Besylate* (AMLODIPINE BESYLATE*) 5 Mg Tablet, 5 MG ORAL DAILY, TAB 01/06/17 Metoprolol Tartrate* (METOPROLOL TARTRATE*) 25 Mg Tablet, 25 MG ORAL EVERY 12 HOURS, TAB 01/06/17 Docusate Sodium* (DOCUSATE SODIUM*) 100 Mg Capsule, 100 MG ORAL TWICE A DAY, CAP 01/06/17 Med list reviewed/reconciled: Yes Allergies: Coded Allergies: PENICILLINS (Verified Allergy, Intermediate, 01/06/17) Patient History Limited by: medical condition History Provided By: Medical Record [facility] Narrative PAST MEDICAL HISTORY: Significant for, 1. Hypertension. 2. History of stroke x3 since 2011. 3. Right hemiplegia. 4. Coronary artery disease. 5. Hypercholesterolemia. 6. History of small-bowel obstruction. PAST SURGICAL HISTORY: Significant for, 1. Trach replacement and subsequent reversal. 2. Percutaneous endoscopic gastrostomy placement on 05/2016. Social History: Denies: alcohol use, drug use, other, smoking Review of Systems All Other Systems: limited Physical Exam Vital Signs Date Time Temp Pulse Resp B/P Pulse Ox O2 Delivery O2 Flow Rate FiO2 01/06/17 01:15 97.0 61 20 149/66 96 Room Air 01/06/17 04:00 2.0 01/06/17 22:30 30 Sp02 EP Interpretation: reviewed Labs Laboratory Tests Test 01/08/17 06:30 White Blood Count 5.9 K/UL (4.8-10.8) Red Blood Count 4.38 M/UL (4.70-6.10) L Hemoglobin 14.3 G/DL (14.2-18.0) Hematocrit 41.7 % (42.0-52.0) L Mean Corpuscular Volume 95 FL (80-99) Mean Corpuscular Hemoglobin 32.7 PG (27.0-31.0) H Mean Corpuscular Hemoglobin Concent 34.3 G/DL (32.0-36.0) Red Cell Distribution Width 11.4 % (11.6-14.8) L Platelet Count 174 K/UL (150-450) Mean Platelet Volume 8.1 FL (6.5-10.1) Neutrophils (%) (Auto) 56.8 % (45.0-75.0) Lymphocytes (%) (Auto) 27.6 % (20.0-45.0) Monocytes (%) (Auto) 9.4 % (1.0-10.0) Eosinophils (%) (Auto) 5.3 % (0.0-3.0) H Basophils (%) (Auto) 0.9 % (0.0-2.0) Sodium Level 143 mEQ/L (135-145) Potassium Level 4.1 mEQ/L (3.4-4.9) Chloride Level 101 mEQ/L (98-107) Carbon Dioxide Level 33 mEQ/L (20-30) H Anion Gap 9 (5-15) Blood Urea Nitrogen 15 mg/dL (7-23) Creatinine 0.7 mg/dL (0.7-1.2) Estimat Glomerular Filtration Rate > 60 mL/min (>60) Glucose Level 86 mg/dL (74-106) Calcium Level 9.0 mg/dL (8.6-10.2) General Appearance: no apparent distress, alert Head: normocephalic EENT: normal ENT inspection Neck: supple Respiratory: no respiratory distress Cardiovascular: normal rate Gastrointestinal: gt - c/d/i Rectal: deferred Neurologic: alert Skin: normal inspection, normal color, no rash, warm/dry Lymphatic: normal inspection, no adenopathy Current Medications Current Medications Medications (Trade) Dose Ordered Sig/Amandeep Route PRN Reason Start Time Stop Time Status Last Admin Dose Admin Amlodipine Besylate (Norvasc) 5 mg DAILY ORAL 01/06/17 09:00 02/05/17 08:59 01/08/17 10:08 Aspirin (ASA) 325 mg DAILY ORAL 01/06/17 09:00 02/05/17 08:59 01/08/17 10:07 Atorvastatin Calcium (Lipitor) 40 mg BEDTIME ORAL 01/06/17 21:00 02/05/17 20:59 01/07/17 21:11 Benazepril HCl (Lotensin) 10 mg BID ORAL 01/06/17 09:00 02/05/17 08:59 01/08/17 10:08 Docusate Sodium (Colace) 100 mg BID ORAL 01/08/17 18:30 02/07/17 18:29 Heparin Sodium (Porcine) (Heparin 5000 units/ml) 5,000 units EVERY 8 HOURS SUBQ 01/06/17 14:00 02/05/17 13:59 01/08/17 10:09 Meclizine HCl (Antivert) 25 mg Q6H PRN ORAL for dizziness 01/08/17 13:00 02/07/17 12:59 Metoprolol Tartrate (Lopressor) 25 mg Q12HR ORAL 01/06/17 09:00 02/05/17 08:59 01/08/17 10:08 GI: Plan Problems: (1) PEG (percutaneous endoscopic gastrostomy) adjustment/replacement/removal (2) CVA, old, hemiparesis Plan ST eval noted GT site removed, patient tolerated the procedure well. GT site care daily/prn no shower x 24 hours push PO aspiration precautions fu labs Discussed with Dr. Cortes. Thank you for referring this patient, we will follow. Anna Dela Cruz N.P. January 08, 2017 14:51
[2017-01-08 16:00] VITALS: BP 108/59
[2017-01-08] MEDS: Docusate 100mg/10ml Liq ORAL SCH (17:33)
[2017-01-08] MEDS ORDERED: Docusate 100mg/10ml Liq ORAL SCH (18:30)
--- NOTE | 2017-01-08 20:31 | Internal Med Progress Note ---
Subjective Date of Service: January 08, 2017 Physician Name BrittneyWojciech Attending Physician Romaine Burgess MD Current Medications Medications (Trade) Dose Ordered Sig/Amandeep Route PRN Reason Start Time Stop Time Status Last Admin Dose Admin Amlodipine Besylate (Norvasc) 5 mg DAILY ORAL 01/09/17 09:00 02/08/17 08:59 Aspirin (ASA) 325 mg DAILY ORAL 01/09/17 09:00 02/08/17 08:59 Atorvastatin Calcium (Lipitor) 40 mg BEDTIME ORAL 01/08/17 21:00 02/07/17 20:59 Benazepril HCl (Lotensin) 10 mg Q12HR ORAL 01/08/17 21:00 02/07/17 20:59 Docusate Sodium (Colace) 100 mg BID ORAL 01/08/17 18:00 02/07/17 17:59 01/08/17 17:33 Heparin Sodium (Porcine) (Heparin 5000 units/ml) 5,000 units EVERY 8 HOURS SUBQ 01/08/17 22:00 02/07/17 21:59 Meclizine HCl (Antivert) 25 mg Q6H PRN ORAL for dizziness 01/08/17 17:00 02/07/17 16:59 Metoprolol Tartrate (Lopressor) 25 mg Q12HR ORAL 01/08/17 21:00 02/07/17 20:59 Allergies: Coded Allergies: PENICILLINS (Verified Allergy, Intermediate, 01/06/17) ROS Limited/Unobtainable: No Constitutional: Reports: no symptoms HEENT: Reports: no symptoms Cardiovascular: Reports: no symptoms Respiratory: Reports: no symptoms Genitourinary: Reports: no symptoms Neurologic/Psychiatric: Reports: no symptoms Subjective 61 YO M admitted with vertigo and possible cerebral vascular accident. Cover for Int Med-Dr Burgess. Objective Last Vital Signs Date Time Temp Pulse Resp B/P Pulse Ox O2 Delivery O2 Flow Rate FiO2 01/08/17 19:41 Nasal Cannula 2.0 28 01/08/17 19:41 96 01/08/17 16:00 97.4 75 18 108/59 Laboratory Tests Test 01/08/17 06:30 White Blood Count 5.9 K/UL (4.8-10.8) Red Blood Count 4.38 M/UL (4.70-6.10) L Hemoglobin 14.3 G/DL (14.2-18.0) Hematocrit 41.7 % (42.0-52.0) L Mean Corpuscular Volume 95 FL (80-99) Mean Corpuscular Hemoglobin 32.7 PG (27.0-31.0) H Mean Corpuscular Hemoglobin Concent 34.3 G/DL (32.0-36.0) Red Cell Distribution Width 11.4 % (11.6-14.8) L Platelet Count 174 K/UL (150-450) Mean Platelet Volume 8.1 FL (6.5-10.1) Neutrophils (%) (Auto) 56.8 % (45.0-75.0) Lymphocytes (%) (Auto) 27.6 % (20.0-45.0) Monocytes (%) (Auto) 9.4 % (1.0-10.0) Eosinophils (%) (Auto) 5.3 % (0.0-3.0) H Basophils (%) (Auto) 0.9 % (0.0-2.0) Sodium Level 143 mEQ/L (135-145) Potassium Level 4.1 mEQ/L (3.4-4.9) Chloride Level 101 mEQ/L (98-107) Carbon Dioxide Level 33 mEQ/L (20-30) H Anion Gap 9 (5-15) Blood Urea Nitrogen 15 mg/dL (7-23) Creatinine 0.7 mg/dL (0.7-1.2) Estimat Glomerular Filtration Rate > 60 mL/min (>60) Glucose Level 86 mg/dL (74-106) Calcium Level 9.0 mg/dL (8.6-10.2) Microbiology Date/Time Source Procedure Growth Status 01/06/17 02:10 Nasal Nares Left MRSA Culture - Final NO METHICILLIN RESISTANT STAPH AUREUS... Complete 01/06/17 02:10 Rectum VRE Culture - Final NO VANCOMYCIN RESISTANT ENTEROCOCCUS ... Complete Intake and Output 01/07/17 01/08/17 19:00 07:00 Intake Total 530 ml Output Total 900 ml Balance 530 ml -900 ml Intake Oral 530 ml Output Urine Total 900 ml Objective General: alert, cooperative, no distress, appears stated age Head: normocephalic, without obvious abnormality, atraumatic Eyes: conjunctivae/corneas clear. PERRL, EOM's intact Throat: lips, mucosa, and tongue normal. MMM Neck: supple, symmetrical, trachea midline, and no JVD Lungs: clear to auscultation bilaterally Heart: regular rate and rhythm, S1, S2 normal, no murmur, click, rub or gallop Abdomen: soft, non-tender, non-distended, bowel sounds normal; no masses or organomegaly Extremities: extremities normal, atraumatic, no cyanosis or edema Pulses: 2+ and symmetric Skin: skin color, texture, turgor normal; no rashes or lesions Neurologic: right hemiplegia. Assessment/Plan Problem List: (1) Vertigo as late effect of stroke Assessment & Plan: MRI=no acute CVA. ?TIA vs vertebral artery occlusion? See neuro workup in progress. (2) Tremor (3) Dysarthria as late effect of stroke (4) Cerebral vascular disease (5) Coronary artery disease (6) HTN (hypertension) Assessment & Plan: Continue norvasc, lopressor and lotensin (7) Hypercholesteremia Assessment & Plan: Continue lipitor (8) Hemiplegia affecting right dominant side Status: not improved WOJCIECH GUERRERO January 08, 2017 20:31
[2017-01-09 00:16] VITALS: BP 124/73
[2017-01-09 04:00] VITALS: BP 134/73
[2017-01-09] MEDS: Heparin 5000 units/ml inj SUBQ SCH ×2 (06:21→14:23)
[2017-01-09 07:05] LABS: ANION GAP 9 (5-15); BASOPHILS % (AUTO) 1.2 % (0.0-2.0); CARBON DIOXIDE 34 mEQ/L (20-30); CHLORIDE 100 mEQ/L (98-107); CREATININE 0.6 mg/dL (0.7-1.2); EOSINOPHILS % (AUTO) 5.3 % (0.0-3.0); GLOMERULAR FILTRATION RATE > 60 mL/min (>60); HEMOLYSIS 14; LYMPHOCYTES % (AUTO) 26.5 % (20.0-45.0); MEAN CORPUSCULAR HGB CONC 34.6 G/DL (32.0-36.0); MEAN CORPUSCULAR VOLUME 95 FL (80-99); MEAN PLATELET VOLUME 8.3 FL (6.5-10.1); MONOCYTES % (AUTO) 9.2 % (1.0-10.0); NEUTROPHILS % (AUTO) 57.8 % (45.0-75.0); PLATELET COUNT 175 K/UL (150-450); POTASSIUM 4.1 mEQ/L (3.4-4.9); RED BLOOD COUNT 4.25 M/UL (4.70-6.10); RED CELL DISTRIBUTION WIDTH 11.3 % (11.6-14.8); SODIUM 143 mEQ/L (135-145); WHITE BLOOD COUNT 4.7 K/UL (4.8-10.8)
[2017-01-09 08:00] VITALS: BP 128/72
[2017-01-09] MEDS: Benazepril 10mg tab ORAL SCH (08:59)
[2017-01-09] MEDS: Metoprolol 25mg tab ORAL SCH (09:00)
[2017-01-09] MEDS: Docusate 100mg/10ml Liq ORAL SCH (09:00)
[2017-01-09 12:00] VITALS: BP 131/70
--- NOTE | 2017-01-09 13:34 | GI Progress Note ---
Assessment/Plan Problems: (1) PEG (percutaneous endoscopic gastrostomy) adjustment/replacement/removal ICD Codes: Z43.1 - Encounter for attention to gastrostomy SNOMED: 092077201, [id number] Status: stable Status Narrative Discussed with Dr. Cortes. Assessment/Plan ok for DC per GI standpoint ST radha noted GT site removed, patient tolerated the procedure well. GT site care daily/prn no shower x 24 hours push PO aspiration precautions fu labs Subjective Subjective limited Objective Last 24 Hour Vital Signs Date Time Temp Pulse Resp B/P Pulse Ox O2 Delivery O2 Flow Rate FiO2 01/09/17 12:00 99.3 68 20 131/70 95 Room Air 01/09/17 09:00 65 128/72 01/09/17 08:59 128/72 01/09/17 08:59 65 128/72 01/09/17 08:00 97.7 65 20 128/72 96 Room Air 01/09/17 07:50 Nasal Cannula 2.0 28 01/09/17 07:50 98 Nasal Cannula 2.0 28 01/09/17 04:00 97.8 74 20 134/73 98 Bi-pap 01/09/17 03:38 68 19 97 Facial 30 01/09/17 01:17 66 22 98 Facial 30 01/09/17 00:16 97.0 77 20 124/73 97 Bi-pap 01/08/17 22:30 65 19 98 Facial 30 01/08/17 21:33 64 21 96 Facial 30 01/08/17 21:01 70 122/63 01/08/17 21:01 122/63 01/08/17 20:41 98.1 75 20 97 Nasal Cannula 01/08/17 19:41 Nasal Cannula 2.0 28 01/08/17 19:41 96 Nasal Cannula 2.0 28 01/08/17 16:00 97.4 75 18 108/59 Nasal Cannula 2.0 97 Intake and Output 01/08/17 01/09/17 19:00 07:00 Intake Total 360 ml Balance 360 ml Intake Oral 360 ml Laboratory Tests Test 01/09/17 05:45 White Blood Count 4.7 K/UL (4.8-10.8) L Red Blood Count 4.25 M/UL (4.70-6.10) L Hemoglobin 14.0 G/DL (14.2-18.0) L Hematocrit 40.5 % (42.0-52.0) L Mean Corpuscular Volume 95 FL (80-99) Mean Corpuscular Hemoglobin 33.0 PG (27.0-31.0) H Mean Corpuscular Hemoglobin Concent 34.6 G/DL (32.0-36.0) Red Cell Distribution Width 11.3 % (11.6-14.8) L Platelet Count 175 K/UL (150-450) Mean Platelet Volume 8.3 FL (6.5-10.1) Neutrophils (%) (Auto) 57.8 % (45.0-75.0) Lymphocytes (%) (Auto) 26.5 % (20.0-45.0) Monocytes (%) (Auto) 9.2 % (1.0-10.0) Eosinophils (%) (Auto) 5.3 % (0.0-3.0) H Basophils (%) (Auto) 1.2 % (0.0-2.0) Sodium Level 143 mEQ/L (135-145) Potassium Level 4.1 mEQ/L (3.4-4.9) Chloride Level 100 mEQ/L (98-107) Carbon Dioxide Level 34 mEQ/L (20-30) H Anion Gap 9 (5-15) Blood Urea Nitrogen 12 mg/dL (7-23) Creatinine 0.6 mg/dL (0.7-1.2) L Estimat Glomerular Filtration Rate > 60 mL/min (>60) Glucose Level 90 mg/dL (74-106) Calcium Level 9.0 mg/dL (8.6-10.2) Height (Feet): 5 Height (Inches): 9.00 Weight (Pounds): 163 General Appearance: no apparent distress, alert Cardiovascular: normal rate Respiratory/Chest: normal breath sounds, no respiratory distress Abdominal Exam: normal bowel sounds, non tender, soft, GT site - s/p removal no bleeding/drainage noted Anna Dela Cruz N.P. January 09, 2017 13:34
[2017-01-09] MEDS ORDERED: MECLIZINE HCL25 MG ORAL (15:38)
--- NOTE | 2017-01-09 15:52 | Internal Med Progress Note ---
Subjective Physician Name Romaine Burgess Attending Physician Romaine Burgess MD Current Medications Medications (Trade) Dose Ordered Sig/Amandeep Route PRN Reason Start Time Stop Time Status Last Admin Dose Admin Amlodipine Besylate (Norvasc) 5 mg DAILY ORAL 01/09/17 09:00 02/08/17 08:59 01/09/17 08:59 Aspirin (ASA) 325 mg DAILY ORAL 01/09/17 09:00 02/08/17 08:59 01/09/17 08:59 Atorvastatin Calcium (Lipitor) 40 mg BEDTIME ORAL 01/08/17 21:00 02/07/17 20:59 01/08/17 21:01 Benazepril HCl (Lotensin) 10 mg Q12HR ORAL 01/08/17 21:00 02/07/17 20:59 01/09/17 08:59 Docusate Sodium (Colace) 100 mg BID ORAL 01/08/17 18:00 02/07/17 17:59 01/09/17 09:00 Heparin Sodium (Porcine) (Heparin 5000 units/ml) 5,000 units EVERY 8 HOURS SUBQ 01/08/17 22:00 02/07/17 21:59 01/09/17 14:23 Meclizine HCl (Antivert) 25 mg Q6H PRN ORAL for dizziness 01/08/17 17:00 02/07/17 16:59 01/09/17 09:03 Metoprolol Tartrate (Lopressor) 25 mg Q12HR ORAL 01/08/17 21:00 02/07/17 20:59 01/09/17 09:00 Allergies: Coded Allergies: PENICILLINS (Verified Allergy, Intermediate, 01/06/17) Subjective awake, alert, responsive, impaired speech, family at bedside Objective Last Vital Signs Date Time Temp Pulse Resp B/P Pulse Ox O2 Delivery O2 Flow Rate FiO2 01/09/17 12:00 99.3 68 20 131/70 95 Room Air 01/09/17 07:50 2.0 28 Laboratory Tests Test 01/09/17 05:45 White Blood Count 4.7 K/UL (4.8-10.8) L Red Blood Count 4.25 M/UL (4.70-6.10) L Hemoglobin 14.0 G/DL (14.2-18.0) L Hematocrit 40.5 % (42.0-52.0) L Mean Corpuscular Volume 95 FL (80-99) Mean Corpuscular Hemoglobin 33.0 PG (27.0-31.0) H Mean Corpuscular Hemoglobin Concent 34.6 G/DL (32.0-36.0) Red Cell Distribution Width 11.3 % (11.6-14.8) L Platelet Count 175 K/UL (150-450) Mean Platelet Volume 8.3 FL (6.5-10.1) Neutrophils (%) (Auto) 57.8 % (45.0-75.0) Lymphocytes (%) (Auto) 26.5 % (20.0-45.0) Monocytes (%) (Auto) 9.2 % (1.0-10.0) Eosinophils (%) (Auto) 5.3 % (0.0-3.0) H Basophils (%) (Auto) 1.2 % (0.0-2.0) Sodium Level 143 mEQ/L (135-145) Potassium Level 4.1 mEQ/L (3.4-4.9) Chloride Level 100 mEQ/L (98-107) Carbon Dioxide Level 34 mEQ/L (20-30) H Anion Gap 9 (5-15) Blood Urea Nitrogen 12 mg/dL (7-23) Creatinine 0.6 mg/dL (0.7-1.2) L Estimat Glomerular Filtration Rate > 60 mL/min (>60) Glucose Level 90 mg/dL (74-106) Calcium Level 9.0 mg/dL (8.6-10.2) Intake and Output 01/08/17 01/09/17 19:00 07:00 Intake Total 360 ml Balance 360 ml Intake Oral 360 ml Objective GENERAL: The patient is well-developed and well-nourished, male, HEENT: Eyes, pupils are equal and responsive. facial asymmetry. NECK: Supple without lymphadenopathy. tracheostomy scar CARDIOVASCULAR: Regular rhythm. S1 and S2 are normal without murmurs, ABDOMEN: Soft, nontender, and nondistended. Positive bowel sounds. no rebound or guarding EXTREMITIES: Negative for clubbing, cyanosis, or edema. RECTAL/GENITAL: Refused. NEUROLOGIC: 2/5 motor strength on the right side and 3/5 on the left. Assessment/Plan Assessment/Plan 1. Vertigo. 2. Tremor. 3. Dysarthria. 4. History of cerebrovascular disease. 5. History of coronary artery disease. 6. Hypertension. 7. Hypercholesterolemia. 8. Right hemiplegia. plan: Discharge home today discuss with family members at bedside regarding discharge planning and care at home, F/U with PMD in 1 week. Romaine Burgess MD January 09, 2017 15:52
[2017-01-09 16:00] VITALS: BP 121/72
--- NOTE | 2017-01-09 19:32 | Pulmonology Progress Note ---
Assessment/Plan Problems: (1) Dizziness (2) CVA, old, hemiparesis (3) HTN (hypertension) (4) At high risk for aspiration Assessment/Plan MRI negative for new events swallow study noted pt/ot might go to med/surg GI to remove gube improved with antivert Subjective Interval Events: awake, comfortable Allergies: Coded Allergies: PENICILLINS (Verified Allergy, Intermediate, 01/06/17) Objective Last 24 Hour Vital Signs Date Time Temp Pulse Resp B/P Pulse Ox O2 Delivery O2 Flow Rate FiO2 01/09/17 16:00 97.9 69 20 121/72 95 Room Air 01/09/17 12:00 99.3 68 20 131/70 95 Room Air 01/09/17 09:00 65 128/72 01/09/17 08:59 128/72 01/09/17 08:59 65 128/72 01/09/17 08:00 97.7 65 20 128/72 96 Room Air 01/09/17 07:50 Nasal Cannula 2.0 28 01/09/17 07:50 98 Nasal Cannula 2.0 28 01/09/17 04:00 97.8 74 20 134/73 98 Bi-pap 01/09/17 03:38 68 19 97 Facial 30 01/09/17 01:17 66 22 98 Facial 30 01/09/17 00:16 97.0 77 20 124/73 97 Bi-pap 01/08/17 22:30 65 19 98 Facial 30 01/08/17 21:33 64 21 96 Facial 30 01/08/17 21:01 70 122/63 01/08/17 21:01 122/63 01/08/17 20:41 98.1 75 20 97 Nasal Cannula 01/08/17 19:41 Nasal Cannula 2.0 28 01/08/17 19:41 96 Nasal Cannula 2.0 28 Intake and Output 01/08/17 01/09/17 19:00 07:00 Intake Total 360 ml Balance 360 ml Intake Oral 360 ml General Appearance: WD/WN HEENT: normocephalic, atraumatic Respiratory/Chest: chest wall non-tender, lungs clear Cardiovascular: normal peripheral pulses, regular rhythm Abdomen: normal bowel sounds Genitourinary: normal external genitalia Extremities: no cyanosis Laboratory Tests 01/09/17 05:45: White Blood Count 4.7L, Red Blood Count 4.25L, Hemoglobin 14.0L, Hematocrit 40.5L, Mean Corpuscular Volume 95, Mean Corpuscular Hemoglobin 33.0H, Mean Corpuscular Hemoglobin Concent 34.6, Red Cell Distribution Width 11.3L, Platelet Count 175, Mean Platelet Volume 8.3, Neutrophils (%) (Auto) 57.8, Lymphocytes (%) (Auto) 26.5, Monocytes (%) (Auto) 9.2, Eosinophils (%) (Auto) 5.3H, Basophils (%) (Auto) 1.2, Sodium Level 143, Potassium Level 4.1, Chloride Level 100, Carbon Dioxide Level 34H, Anion Gap 9, Blood Urea Nitrogen 12, Creatinine 0.6L, Estimat Glomerular Filtration Rate > 60, Glucose Level 90, Calcium Level 9.0 THA GURROLA January 09, 2017 19:32
--- NOTE | 2017-01-13 11:54 | Discharge Summary ---
Discharge Summary Hospital Course Date of Admission January 06, 2017 at 01:07 Date of Discharge January 09, 2017 at 16:17 Admitting Diagnosis HPI Sunitha Foreman is a 61 year old male who was admitted on January 06, 2017 at 01:07 for Stroke Hospital Course dc summary #[id number] Discharge Medications New Medications: Meclizine Hcl* (Meclizine*) 25 Mg Tablet 25 MG ORAL Q6H PRN for 30 Days, TAB Continued Medications: Amlodipine Besylate* (Amlodipine Besylate*) 5 Mg Tablet 5 MG ORAL DAILY, TAB Atorvastatin Calcium* (Lipitor*) 20 Mg Tablet 20 MG ORAL BEDTIME, TAB Docusate Sodium* (Docusate Sodium*) 100 Mg Capsule 100 MG ORAL TWICE A DAY, CAP Melatonin (Melatonin) 10 Mg Tablet.er 10 MG PO QHS, TAB Metoprolol Tartrate* (Metoprolol Tartrate*) 25 Mg Tablet 25 MG ORAL EVERY 12 HOURS, TAB Discharge Condition Upon Discharge: stable Discharge Disposition Patient was discharged to Home () Discharge Diagnoses: Discharge Instructions Discharge Instructions Special Instructions I have been assigned to complete a D/C Summary on this account. I was not involved in the patient management Ruby Goldberg NP ([place]) January 13, 2017 11:54
== END 2017-01-09 16:17 | disposition home or self-care (01) | DRG 149 ==
LOC: 2E 01:07 → 4W 01-08 16:30
DX: R42 Dizziness and giddiness (principal); I69.351 Hemiplegia and hemiparesis following cerebral infarction affecting right dominant side; I10 Essential (primary) hypertension; Z43.1 Encounter for attention to gastrostomy; I69.398 Other sequelae of cerebral infarction; I69.322 Dysarthria following cerebral infarction; I25.10 Atherosclerotic heart disease of native coronary artery without angina pectoris; E78.00 Pure hypercholesterolemia, unspecified; Z88.0 Allergy status to penicillin
CPT/HCPCS: 36415; 70551; 71010; 74230; 80048; 80061; 83735; 84100; 85025; 87081; 93306; 94660; 94760